=== PATIENT | male | born 1945 | race Caucasian/White ===

== ENCOUNTER 2024-10-17 12:11 | Inpatient (IN) | payer MEDICARE, OTHER ==
[~2024-10-17] VITALS: Ht 172.7 cm; Wt 53.5 kg
[2024-10-17 14:23] LABS: BASOPHILS % (AUTO) 0.2 % (0.0-2.0); EOSINOPHILS % (AUTO) 0.2 % (0.0-6.0); HEMATOCRIT 39 % (39-51); HEMOGLOBIN 12.9 g/dL (13.5-17.5); LYMPHOCYTES # (AUTO) 0.5 K/uL (0.8-4.8); LYMPHOCYTES % (AUTO) 6.7 % (20.0-44.0); MEAN CORPUSCULAR HEMOGLOBIN 29 PG (26.0-33.0); MEAN CORPUSCULAR HGB CONC 33 g/dl (31.0-36.0); MEAN CORPUSCULAR VOLUME 86 fL (80-96); MONOCYTES # (AUTO) 0.4 K/uL (0.1-1.30); MONOCYTES % (AUTO) 5.9 % (2.0-12.0); NEUTROPHILS # (AUTO) 5.9 K/uL (1.8-8.9); PLATELET COUNT (AUTO) 332 K/uL (150-450); RED BLOOD CELL COUNT(AUTO) 4.48 MIL/uL (4.5-6.0); RED CELL DISTRIBUTION WIDTH 13.9 % (11.5-15.0); WHITE BLOOD COUNT (AUTO) 6.8 K/uL (4.3-11.0)
[2024-10-17] MEDS: IV NS 0.9% 1,000 ML BAG IV ONE (14:34)
[2024-10-17 14:36] LABS: CALCIUM, SERUM 8.9 mg/dL (8.5-10.1); CARBON DIOXIDE 27 mmol/L (21-32); CHLORIDE 93 mmol/L (98-107); CREATININE 0.8 mg/dL (0.6-1.3); GLUCOSE 188 mg/dL (74-106); POTASSIUM 3.6 mmol/L (3.5-5.1); SODIUM SERUM 133 mmol/L (136-145); UREA NITROGEN, BLOOD 12 mg/dL (7-18)
[2024-10-17 14:41] LABS: ALANINE AMINOTRANSFERASE 11 U/L (12-78); ALBUMIN 3.2 g/dL (3.4-5.0); ALKALINE PHOSPHATASE 75 U/L (46-116); ASPARTATE AMINOTRANSFERASE 11 U/L (15-37); BILIRUBIN,DIRECT 0.3 mg/dL (0.0-0.2); BILIRUBIN,TOTAL 0.9 mg/dL (0.2-1.0); TOTAL PROTEIN, SERUM 6.8 g/dL (6.4-8.2)
[2024-10-17] MEDS ORDERED: FINA5TAB11 PO (16:15)
[2024-10-17] MEDS ORDERED: SEMA1PEN SQ (16:15)
[2024-10-17] MEDS ORDERED: PIOG30TA10 PO (16:15)
[2024-10-17] MEDS ORDERED: OLOP5DRO22 EACHEYE (16:15)
[2024-10-17] MEDS ORDERED: GABA-532 PO (16:15)
[2024-10-17] MEDS ORDERED: METF-881 PO (16:15)
[2024-10-17] MEDS ORDERED: TAMS-12 PO (16:15)
[2024-10-17] MEDS ORDERED: ASPI-1420 PO (16:15)
[2024-10-17] MEDS ORDERED: TRAZ-257 PO (16:15)
[2024-10-17] MEDS ORDERED: ROSU10TA29 PO (16:15)
[2024-10-17 16:55] LABS: APPEARANCE,URINE CLEAR (CLEAR); BILIRUBIN,URINE 1+ (NEGATIVE); BLOOD, URINE NEGATIVE Ery/uL (NEGATIVE); COLOR,URINE YELLOW (YELLOW); KETONES,URINE 1+ mg/dL (NEGATIVE); LEUKOCYTE ESTERASE ,URINE NEGATIVE (NEGATIVE); NITRITE, URINE NEGATIVE (NEGATIVE); PROTEIN,URINE 1+ mg/dl (NEGATIVE); UGLUCOSE NEGATIVE (NEGATIVE)
[2024-10-17 17:25] LABS: ADD URINE CULTURE NO; BACTERIA,URINE Rare /HPF (None Seen); RBC,URINE NONE SEEN /HPF (0-2); WBC,URINE 0-2 /HPF (0-3)
[2024-10-17 17:26] LABS: SQUAMOUS EPITHELIAL CELL,UR Rare /HPF (None Seen)
[2024-10-17] MEDS ORDERED: MAG HYDROX/AL HYDROX/SIMETH 30 ML UDC PO PRN (17:30)
[2024-10-17] MEDS: ASPIRIN EC 81 MG TABLET.DR PO SCH (17:30)
[2024-10-17] MEDS ORDERED: MAGNESIUM HYDROXIDE 30 ML UDC PO PRN (17:30)
[2024-10-17] MEDS ORDERED: Z GUARD REMEDY 4 OZ OINT TP PRN (17:30)
[2024-10-17] MEDS ORDERED: ACETAMINOPHEN 325 MG TABLET PO PRN (17:30)
[2024-10-17] MEDS ORDERED: ONDANSETRON HCL/PF 4 MG/2 ML VIAL IVP PRN (17:30)
[2024-10-17] MEDS: IV NS 0.9% 1,000 ML IV SCH (18:34)
[2024-10-17 20:16] VITALS: BP 120/62; TEMP 97.9; O2SAT 98
[2024-10-17] MEDS ORDERED: DEXTROSE 50%-WATER 50 ML DISP.SYRIN IV PRN (21:00)
[2024-10-17] MEDS: BLOOD SUGAR DIAGNOSTIC 1 EACH STRIP VI SCH (22:08)
[2024-10-17] MEDS: *INSULIN REGULAR(HUMULIN R)HUM 100 UNIT/ML VIAL SQ PRN (22:08)
[2024-10-17] MEDS: GABAPENTIN 100 MG CAPSULE PO SCH (22:10)
[2024-10-18] MEDS: INSULIN REGULAR, HUMAN 100 UNIT/ML 3 ML VIAL SQ PRN (06:24)
[2024-10-18 06:29] LABS: BASOPHILS % (AUTO) 0.3 % (0.0-2.0); EOSINOPHILS % (AUTO) 0.5 % (0.0-6.0); HEMATOCRIT 33 % (39-51); HEMOGLOBIN 11.1 g/dL (13.5-17.5); LYMPHOCYTES # (AUTO) 0.9 K/uL (0.8-4.8); LYMPHOCYTES % (AUTO) 17.3 % (20.0-44.0); MEAN CORPUSCULAR HEMOGLOBIN 29 PG (26.0-33.0); MEAN CORPUSCULAR HGB CONC 34 g/dl (31.0-36.0); MEAN CORPUSCULAR VOLUME 86 fL (80-96); MONOCYTES # (AUTO) 0.5 K/uL (0.1-1.30); MONOCYTES % (AUTO) 8.5 % (2.0-12.0); NEUTROPHILS # (AUTO) 3.9 K/uL (1.8-8.9); NEUTROPHILS % (AUTO) 73.4 % (43.0-81.0); PLATELET COUNT (AUTO) 325 K/uL (150-450); RED BLOOD CELL COUNT(AUTO) 3.81 MIL/uL (4.5-6.0); RED CELL DISTRIBUTION WIDTH 13.6 % (11.5-15.0); WHITE BLOOD COUNT (AUTO) 5.4 K/uL (4.3-11.0)
[2024-10-18 06:41] LABS: CALCIUM, SERUM 8.4 mg/dL (8.5-10.1); CARBON DIOXIDE 31 mmol/L (21-32); CHLORIDE 101 mmol/L (98-107); CREATININE 0.7 mg/dL (0.6-1.3); GLUCOSE 89 mg/dL (74-106); MAGNESIUM 1.4 mg/dL (1.8-2.4); PHOSPHORUS 2.2 mg/dL (2.5-4.9); POTASSIUM 2.9 mmol/L (3.5-5.1); SODIUM SERUM 137 mmol/L (136-145); UREA NITROGEN, BLOOD 8 mg/dL (7-18)
[2024-10-18 08:00] VITALS: BP 115/60; TEMP 98.6; O2SAT 98
[2024-10-18] MEDS: FINASTERIDE (5 MG) 5 MG TABLET PO SCH (08:32)
[2024-10-18] MEDS: THERAHONEY GEL 1.5 OZ TUBE TP SCH (08:32)
[2024-10-18] MEDS: MAGNESIUM OXIDE 400 MG TABLET PO SCH (10:06)
[2024-10-18] MEDS: POTASSIUM CHLORIDE 20 MEQ TAB.PRT.SR PO ONE (10:07)
[2024-10-18 16:00] VITALS: BP 108/66; TEMP 99.1; O2SAT 98
[2024-10-18] MEDS: K PHOS NEUTRAL 250 MG TABLET PO ONE (16:17)
[2024-10-18 20:00] VITALS: BP 109/58; TEMP 99; O2SAT 98
[2024-10-19 06:58] LABS: BASOPHILS % (AUTO) 0.3 % (0.0-2.0); EOSINOPHILS % (AUTO) 0.8 % (0.0-6.0); HEMATOCRIT 34 % (39-51); HEMOGLOBIN 11.2 g/dL (13.5-17.5); LYMPHOCYTES # (AUTO) 0.9 K/uL (0.8-4.8); LYMPHOCYTES % (AUTO) 20.5 % (20.0-44.0); MEAN CORPUSCULAR HEMOGLOBIN 29 PG (26.0-33.0); MEAN CORPUSCULAR HGB CONC 34 g/dl (31.0-36.0); MEAN CORPUSCULAR VOLUME 86 fL (80-96); MONOCYTES # (AUTO) 0.4 K/uL (0.1-1.30); MONOCYTES % (AUTO) 8.3 % (2.0-12.0); NEUTROPHILS # (AUTO) 3.2 K/uL (1.8-8.9); NEUTROPHILS % (AUTO) 70.1 % (43.0-81.0); PLATELET COUNT (AUTO) 315 K/uL (150-450); RED CELL DISTRIBUTION WIDTH 13.7 % (11.5-15.0); WHITE BLOOD COUNT (AUTO) 4.6 K/uL (4.3-11.0)
[2024-10-19 07:00] VITALS: BP 101/59; TEMP 97.5; O2SAT 97
[2024-10-19 07:09] LABS: CARBON DIOXIDE 29 mmol/L (21-32); CHLORIDE 102 mmol/L (98-107); CREATININE 0.6 mg/dL (0.6-1.3); GLUCOSE 155 mg/dL (74-106); MAGNESIUM 1.4 mg/dL (1.8-2.4); PHOSPHORUS 1.9 mg/dL (2.5-4.9); POTASSIUM 3.2 mmol/L (3.5-5.1); SODIUM SERUM 138 mmol/L (136-145); UREA NITROGEN, BLOOD 7 mg/dL (7-18)
[2024-10-19] MEDS: POTASSIUM PHOSPHATE MM 5 MMOL in IV NS 0.9% 100 ML IV SCH (10:45)
[2024-10-19] MEDS: Magnesium 1GM/D5W 100ML PREMIX 100 ML IV SCH (14:50)
[2024-10-19 16:00] VITALS: BP 95/52; TEMP 97.9; O2SAT 96
[2024-10-19] MEDS: GLUCERNA SHAKE 237 ML CAN PO SCH (17:29)
[2024-10-19 20:00] VITALS: BP_SYST 109; BP_SYST 118; BP_DIAS 56; BP_DIAS 74; TEMP 98.1; TEMP 98.6; TEMP 98.7; O2SAT 98; O2SAT 99
[2024-10-20 07:00] VITALS: BP 123/57; TEMP 97.9
[2024-10-20 10:51] LABS: CALCIUM, SERUM 8.2 mg/dL (8.5-10.1); CARBON DIOXIDE 28 mmol/L (21-32); CHLORIDE 99 mmol/L (98-107); CREATININE 0.7 mg/dL (0.6-1.3); GLUCOSE 242 mg/dL (74-106); MAGNESIUM 2.1 mg/dL (1.8-2.4); POTASSIUM 3.3 mmol/L (3.5-5.1); SODIUM SERUM 135 mmol/L (136-145); UREA NITROGEN, BLOOD 8 mg/dL (7-18)
[2024-10-20] MEDS: POTASSIUM CHLORIDE 20 MEQ POWDER PACKET PO ONE (15:40)
[2024-10-20 16:00] VITALS: BP 131/70; TEMP 98.6; O2SAT 99
[2024-10-20 20:00] VITALS: BP 114/95; TEMP 98.8; O2SAT 99
[2024-10-21] MEDS: IV NS 0.9% 1,000 ML IV PRN (05:51)
[2024-10-21 07:15] LABS: CALCIUM, SERUM 8.3 mg/dL (8.5-10.1); CARBON DIOXIDE 26 mmol/L (21-32); CHLORIDE 105 mmol/L (98-107); CREATININE 0.5 mg/dL (0.6-1.3); GLUCOSE 145 mg/dL (74-106); POTASSIUM 3.3 mmol/L (3.5-5.1); SODIUM SERUM 138 mmol/L (136-145); UREA NITROGEN, BLOOD 7 mg/dL (7-18)
[2024-10-21 07:30] VITALS: BP 135/67; TEMP 98.1; O2SAT 100
[2024-10-21] MEDS: POTASSIUM CHLORIDE 20 MEQ TAB.PRT.SR PO SCH (09:30)
[2024-10-21 16:00] VITALS: BP 124/73; TEMP 98.2; O2SAT 98
[2024-10-22 08:00] VITALS: BP 121/68; TEMP 97.5; O2SAT 96
[2024-10-22 15:50] LABS: CALCIUM, SERUM 8.3 mg/dL (8.5-10.1); CARBON DIOXIDE 25 mmol/L (21-32); CHLORIDE 103 mmol/L (98-107); CREATININE 0.7 mg/dL (0.6-1.3); GLUCOSE 263 mg/dL (74-106); POTASSIUM 3.2 mmol/L (3.5-5.1); SODIUM SERUM 138 mmol/L (136-145); UREA NITROGEN, BLOOD 15 mg/dL (7-18)
[2024-10-22 16:00] VITALS: BP_SYST 134; TEMP 98.2; O2SAT 98
[2024-10-22 20:00] VITALS: BP 102/63; TEMP 98.6; O2SAT 98
[2024-10-22] MEDS: POTASSIUM CHLORIDE 20 MEQ TAB.PRT.SR PO ONE (21:08)
[2024-10-23 08:00] VITALS: BP 100/64; TEMP 97.9; O2SAT 97
[2024-10-23 16:00] VITALS: BP 99/54; TEMP 98.4; O2SAT 94
[2024-10-23 20:00] VITALS: BP_SYST 108; BP_DIAS 54; BP_DIAS 84; TEMP 97.7; O2SAT 100
[2024-10-24 07:00] LABS: CALCIUM, SERUM 8.2 mg/dL (8.5-10.1); CARBON DIOXIDE 26 mmol/L (21-32); CHLORIDE 99 mmol/L (98-107); CREATININE 0.5 mg/dL (0.6-1.3); GLUCOSE 182 mg/dL (74-106); POTASSIUM 3.5 mmol/L (3.5-5.1); SODIUM SERUM 133 mmol/L (136-145); UREA NITROGEN, BLOOD 13 mg/dL (7-18)
[2024-10-24 08:00] VITALS: BP 123/66; TEMP 98.1; O2SAT 100
[2024-10-24 16:00] VITALS: BP 115/61; TEMP 98.6; O2SAT 98
[2024-10-24] MEDS: ARGININE/GLUTAMINE/CALCIUM BMB 1 EACH POWD.PACK PO SCH (17:00)
[2024-10-24 20:00] VITALS: BP 126/65; TEMP 98.6; O2SAT 100
[2024-10-25 07:42] LABS: CALCIUM, SERUM 8.7 mg/dL (8.5-10.1); CARBON DIOXIDE 24 mmol/L (21-32); CHLORIDE 98 mmol/L (98-107); CREATININE 0.6 mg/dL (0.6-1.3); GLUCOSE 224 mg/dL (74-106); POTASSIUM 4.2 mmol/L (3.5-5.1); SODIUM SERUM 132 mmol/L (136-145); UREA NITROGEN, BLOOD 13 mg/dL (7-18)
[2024-10-25 08:00] VITALS: BP 128/69; TEMP 97.7; O2SAT 98
[2024-10-25] MEDS ORDERED: NUT.237L45 PO (09:52)
[2024-10-25] MEDS ORDERED: NUTR1PAC14 PO (09:52)
[2024-10-25] MEDS ORDERED: COLL30OI TP (09:52)
== END 2024-10-25 17:09 | DRG 622 ==
LOC: ER 12:15 → MED 17:01
PROVIDERS: ADMIT Internal Medicine; ATTEND Nurse Practitioner Acute Care
PROC: 0JBR0ZZ Excision of Left Foot Subcutaneous Tissue and Fascia, Open Approach (ICD-10-PCS; principal; 2024-10-19)
DX: E86.0 Dehydration (principal); G93.41 Metabolic encephalopathy; L89.623 Pressure ulcer of left heel, stage 3; N39.0 Urinary tract infection, site not specified; E44.1 Mild protein-calorie malnutrition; E87.20 Acidosis, unspecified; E87.1 Hypo-osmolality and hyponatremia; E11.42 Type 2 diabetes mellitus with diabetic polyneuropathy; E88.09 Other disorders of plasma-protein metabolism, not elsewhere classified; I10 Essential (primary) hypertension; E78.5 Hyperlipidemia, unspecified; L89.156 Pressure-induced deep tissue damage of sacral region; N40.0 Benign prostatic hyperplasia without lower urinary tract symptoms; R62.7 Adult failure to thrive; Z74.09 Other reduced mobility; Z79.84 Long term (current) use of oral hypoglycemic drugs; Z79.82 Long term (current) use of aspirin; Z79.899 Other long term (current) drug therapy; L89.616 Pressure-induced deep tissue damage of right heel; E86.1 Hypovolemia
CPT/HCPCS: 36415; 71045-TC; 80048-TC; 80076-TC; 81001; 82962-TC; 83735-TC; 83880; 84100-TC; 84484-TC; 85025-TC; 97110-TC; 97530-TC; 97535-TC; A4223; G0378; J1815; J3475; J3490; J7030